=== PATIENT | female | born 1935 | race Caucasian/White ===

== ENCOUNTER → 2018-02-27 | Outpatient (CLI) | payer MEDICARE, OTHER | LOC: COL.RAD 02-25 14:30 | DX: M19.122 Post-traumatic osteoarthritis, left elbow (principal) | CPT/HCPCS: J3301; Q9967 ==

== ENCOUNTER → 2018-05-09 | Outpatient (CLI) | payer MEDICARE, OTHER | LOC: COL.RAD 08:37 | DX: N18.3 Chronic kidney disease, stage 3 (moderate) (principal) ==

== ENCOUNTER 2018-07-28 13:45 | Day surgery (SDC) | payer MEDICARE, OTHER ==
[~2018-07-28] VITALS: Ht 156.2 cm; Wt 70.7 kg
[2018-07-28 14:23] VITALS: BP 140/67; PULSE 82; TEMP 98.8
[2018-07-28] MEDS ORDERED: MASON NATURAL2000 IU PO (14:29)
[2018-07-28] MEDS ORDERED: ZOCOR 10MG10 MG PO (14:29)
[2018-07-28] MEDS ORDERED: ABILIFY MYCITE2 MG PO (14:30)
[2018-07-28] MEDS ORDERED: FERROUS FUMARA324 MG PO (14:30)
[2018-07-28] MEDS ORDERED: ZEBETA 5MG5 MG PO (14:31)
[2018-07-28] MEDS ORDERED: PRISTIQ 50 MG T50 MG PO (14:31)
[2018-07-28] MEDS ORDERED: PROTONIX 40MG T40 MG PO (14:32)
[2018-07-28] MEDS ORDERED: GLUCOPHAGE XR500 M1 PO (14:32)
[2018-07-28] MEDS ORDERED: TRULICITY0.75 MG/0. SQ (14:33)
[2018-07-28] MEDS ORDERED: PRINIVIL10 MG PO (14:33)
[2018-07-28] MEDS ORDERED: LANTUS SOLOS100 U/ML SQ (14:34)
--- NOTE | 2018-07-28 14:35 | NUR ---
TO RM AT 1355- CALL LIGHT IN REACH DAUGHTER AT BEDSIDE
[2018-07-28 15:40] VITALS: BP 135/67; PULSE 77
--- NOTE | 2018-07-28 15:40 | NUR ---
TO BAY5 PER CART FROM ENDOSCOPY. AMBULATED WITH ONE ASSIST TO RECLINER AND TOLERATED WELL. RECEIVED APPLE SAUCE AND WATER
[2018-07-28 15:55] VITALS: BP 146/84; PULSE 75
--- NOTE | 2018-07-28 15:55 | NUR ---
DRINKING WATER AND ATE 100% APPLE SAUCE.
[2018-07-28 16:10] VITALS: BP 121/73; PULSE 74
[2018-07-28 16:25] VITALS: BP 124/61; PULSE 75
--- NOTE | 2018-07-28 16:40 | NUR ---
DR ROGEL SAID PATIENT COULD GO HOME AND CALL WITH QUESTIONS. PATIENT AND DAUGHTER RECEIVED DISCHARGE INSTRUCTIONS AND VERBALIZED UNDERSTANDING. DISCONTINUED IV AND INT- CATHETER INTACT. COVERED WITH A BANDAIDE WITH PRESSURE APPLIED
--- NOTE | 2018-07-28 16:50 | NUR ---
DISCHARGED PER WC BY NURSING STAFF TO PRIVATE CAR IN CARE OF DAUGHTER -[place]
[2018-07-28 17:37] VITALS: BP 139/69; PULSE 77
== END 2018-07-28 17:02 | disposition home or self-care (01) ==
LOC: SDCO 13:45
DX: K22.2 Esophageal obstruction (principal); K21.9 Gastro-esophageal reflux disease without esophagitis; F32.9 Major depressive disorder, single episode, unspecified; D64.9 Anemia, unspecified; I25.2 Old myocardial infarction; I13.0 Hypertensive heart and chronic kidney disease with heart failure and stage 1 through stage 4 chronic kidney disease, or unspecified chronic kidney disease; E11.22 Type 2 diabetes mellitus with diabetic chronic kidney disease; N18.3 Chronic kidney disease, stage 3 (moderate); I50.9 Heart failure, unspecified; M19.90 Unspecified osteoarthritis, unspecified site; Z79.4 Long term (current) use of insulin; Z88.5 Allergy status to narcotic agent; Z96.659 Presence of unspecified artificial knee joint; Z95.0 Presence of cardiac pacemaker
CPT/HCPCS: OP; C1726; J2704; J7030